=== PATIENT | female | born 1990 | race Caucasian/White ===

== ENCOUNTER 2016-07-09 14:31 | Emergency (ER) | payer OTHER ==
[2016-07-09] MEDS ORDERED: CEPHALEXIN 500 MG CAPSULE PO ONE (15:33)
[2016-07-09] MEDS ORDERED: PHENAZOPYRIDINE HCL 200 MG TABLET PO ONE (15:33)
--- NOTE | 2016-07-09 15:37 | ER Document Report ---
ED Medical Screen (RME) - General Mode of Arrival: Ambulatory Information source: Patient TRAVEL OUTSIDE OF THE [place] IN LAST 30 DAYS: No - HPI Onset: Other - 3 days ago Associated Symptoms: Other - see notes above <JUNIOR CASTILLO - Last Filed: 07/09/16 15:30> <CHANDLER DEL VALLE - Last Filed: 07/09/16 15:57> - General Chief Complaint: Urinary Problem Stated Complaint: URINATION PROBLEM Notes: 26 year old female with history of UTIs presents to the ED complaining of difficulty urinating for the past 3 days. Patient states that she had burning with urination 3 days ago, but is more of an "achy" pain now. Patient reports that she is also having some abdominal pain. Patient feels like these symptoms are similar to previous UTIs. (JUNIOR CASTILLO) - Related Data Allergies/Adverse Reactions: Sulfa (Sulfonamide Antibiotics) Allergy (Verified 07/09/16 15:21) Home Medications: Current Home Medications No Home Medications 07/09/16 [History] Past Medical History - General Information source: Patient Renal/ Medical History: Reports: Other - UTIs. Denies: Hx Peritoneal Dialysis - Immunizations Hx Diphtheria, Pertussis, Tetanus Vaccination: Yes <JUNIOR CASTILLO - Last Filed: 07/09/16 15:30> Review of Systems - Review of Systems Constitutional: No symptoms reported EENT: No symptoms reported Cardiovascular: No symptoms reported Respiratory: No symptoms reported Gastrointestinal: See HPI, Abdominal pain Genitourinary: See HPI, Burning, Dysuria, Retention Female Genitourinary: No symptoms reported Musculoskeletal: No symptoms reported Skin: No symptoms reported Hematologic/Lymphatic: No symptoms reported Neurological/Psychological: No symptoms reported -: Yes All other systems reviewed and negative <JUNIOR CASTILLO - Last Filed: 07/09/16 15:30> Physical Exam - Vital signs Interpretation: Normal - Abdominal Distension: No distension Tenderness: Other - mild suprapubic TTP <CHANDLER DEL VALLE - Last Filed: 07/09/16 15:57> - Vital signs Vitals: Temp Pulse Resp BP Pulse Ox 98.3 F 75 16 100/63 99 07/09/16 14:48 07/09/16 14:48 07/09/16 14:48 07/09/16 14:48 07/09/16 14:48 Course <JUNIOR CASTILLO - Last Filed: 07/09/16 15:30> <CHANDLER DEL VALLE - Last Filed: 07/09/16 15:57> - Re-evaluation Re-evalutation: 07/09/16 15:57 I personally performed the services described in the documentation, reviewed and edited the documentation which was dictated to the scribe in my presence, and it accurately records my words and actions. (CHANDLER DEL VALLE) - Vital Signs Vital signs: Temp Pulse Resp BP Pulse Ox 98.3 F 75 16 100/63 99 07/09/16 14:48 07/09/16 14:48 07/09/16 14:48 07/09/16 14:48 07/09/16 14:48 - Laboratory Laboratory results interpreted by me: 07/09/16 15:29 Ur Leukocyte Esterase TRACE H Scribe Documentation - Scribe Written by Scribe:: Jenn Eden, 07/09/2016 1537 acting as scribe for :: Teressa <JUNIOR CASTILLO - Last Filed: 07/09/16 15:30>
[2016-07-09 15:46] LABS: APPEARANCE,URINE SLIGHTLY-CLOUDY; BILIRUBIN,URINE NEGATIVE (NEGATIVE); GLUCOSE, URINE NEGATIVE (NEGATIVE); KETONES,URINE NEGATIVE (NEGATIVE); LEUKOCYTE ESTERASE,URINE TRACE (NEGATIVE); NITRITE,URINE NEGATIVE (NEGATIVE); PROTEIN,URINE NEGATIVE (NEGATIVE); URINE SPECIFIC GRAVITY 1.016; UROBILINOGEN,URINE NEGATIVE mg/dL (<2.0)
[2016-07-09] MEDS ORDERED: LIDOCAINE 1% INJ-PF (10 MG/ML) 30 ML SDV INJ ONE (17:28)
[2016-07-09] MEDS ORDERED: CEFTRIAXONE INJ 250 MG VIAL IM ONE (17:28)
[2016-07-09] MEDS ORDERED: AZITHROMYCIN 250 MG TABLET PO ONE (17:28)
--- NOTE | 2016-07-09 18:51 | ER Document Report ---
ED GI/ - General Chief Complaint: Urinary Problem Stated Complaint: URINATION PROBLEM Mode of Arrival: Ambulatory Information source: Patient TRAVEL OUTSIDE OF THE [place] IN LAST 30 DAYS: No - HPI Patient complains to provider of: Dysuria Severity at maximum: Mild Severity in ED: Mild Vaginal bleeding (Compared to normal period): None Sexual history: Active, New partner, Unprotected intercourse Notes: 07/09/16 18:53 Patient arrives with complaints of trouble urinating for the last few days. She states that occasionally she feels like she is not able to fully into her bladder. She complains of some mild pain with urination as well. She complains of some vaginal itching. She denies any discharge. States she is currently and has had 2 sexual partners, does not always use protection. She denies any vaginal bleeding or discharge. She denies any abdominal pain, no nausea vomiting or diarrhea. She denies any fevers. No rash. She denies any chest pain or shortness of breath. She denies any unilateral numbness tingling or weakness. Has no other complaints at this time. - Related Data Allergies/Adverse Reactions: Sulfa (Sulfonamide Antibiotics) Allergy (Verified 07/09/16 15:21) Past Medical History - General Information source: Patient - Social History Smoking Status: Unknown if Ever Smoked Family History: Reviewed & Not Pertinent Patient has suicidal ideation: No Patient has homicidal ideation: No Renal/ Medical History: Reports: Other - UTIs. Denies: Hx Peritoneal Dialysis - Immunizations Hx Diphtheria, Pertussis, Tetanus Vaccination: Yes Review of Systems - Review of Systems -: Yes All other systems reviewed and negative Physical Exam - Vital signs Vitals: Temp Pulse Resp BP Pulse Ox 98.3 F 75 16 100/63 99 07/09/16 14:48 07/09/16 14:48 07/09/16 14:48 07/09/16 14:48 07/09/16 14:48 - General General appearance: Appears well, Alert - HEENT Head: Normocephalic, Atraumatic Eyes: Normal Pupils: PERRL Pharynx: Normal - Respiratory Respiratory status: No respiratory distress Breath sounds: Normal - Cardiovascular Rhythm: Regular Heart sounds: Normal auscultation Murmur: No - Abdominal Inspection: Normal Distension: No distension Bowel sounds: Normal Tenderness: Nontender Organomegaly: No organomegaly - Genitourinary External exam: Normal. No: Lesions, Vesicles Speculum exam: Normal, Cervix closed. No: Vaginal discharge, Lesions, Vaginal lacerations Vaginal bleeding: None Bimanuel exam: Normal. No: Cervical motion tender, Bladder/Urethral tender, Adnexal mass, Adnexal tenderness, Uterus enlarged - Back Back: Normal, Nontender. No: CVA tenderness - Extremities General upper extremity: Normal inspection, Nontender, Normal color, Normal ROM , Normal temperature General lower extremity: Normal inspection, Nontender, Normal color, Normal ROM , Normal temperature, Normal weight bearing. No: Yvette's sign - Neurological Neuro grossly intact: Yes Cognition: Normal Orientation: AAOx4 Sarah Coma Scale Eye Opening: Spontaneous Sarah Coma Scale Verbal: Oriented [place] Coma Scale Motor: Obeys Commands [place] Coma Scale Total: 15 Speech: Normal Motor strength normal: LUE, RUE, LLE, RLE Sensory: Normal - Psychological Associated symptoms: Normal affect, Normal mood - Skin Skin Temperature: Warm Skin Moisture: Dry Skin Color: Normal Course - Re-evaluation Re-evalutation: 07/09/16 19:22 Patient is nontoxic and stable vitals. The patient has urinary symptoms, no obvious UTI seen. GC chlamydia cultures are currently pending at this time. The patient has been sexually active without protection, therefore she was likely treated for gonorrhea and chlamydia here in the emergency department. Wet prep shows no trichomoniasis or yeast, shows epithelial cells as well as bacteria which according to the lab is consistent with bacterial vaginosis. Patient will be discharged home on Macrobid for possible minor UTI as well as Flagyl for possible BV. Follow-up if not better in 3-5 days, sooner for increasing pain, high fever, persistent vomiting, or any further concerns. The patient's emergency department workup and current diagnosis were explained to the patient and or family. Follow-up instructions were provided. Medications if prescribed were discussed. Instructions for when to return to the emergency department including specific worrisome symptoms were discussed with the patient and/or family. - Vital Signs Vital signs: Temp Pulse Resp BP Pulse Ox 98.3 F 75 16 100/63 99 07/09/16 14:48 07/09/16 14:48 07/09/16 14:48 07/09/16 14:48 07/09/16 14:48 - Laboratory Laboratory results interpreted by me: 07/09/16 15:29 Ur Leukocyte Esterase TRACE H Discharge - Discharge Clinical Impression: BV (bacterial vaginosis) UTI (urinary tract infection) Qualifiers: Urinary tract infection type: acute cystitis Hematuria presence: without hematuria Qualified Code(s): N30.00 - Acute cystitis without hematuria Condition: Stable Disposition: HOME, SELF-CARE Instructions: Urinary Tract Infection ([facility]), Vaginosis, Bacterial ([facility]) Additional Instructions: Take medications as prescribed. Always use condoms. Follow-up with your doctor for Pap testing as well as HIV and syphilis testing. Follow up if not better in 3-5 days, sooner for increased pain, high fever, persistent vomiting, or any further concerns. Prescriptions: Metronidazole [Flagyl 500 mg Tablet] 500 mg PO TID #21 tablet Nitrofurantoin Monohyd/M-Cryst [Macrobid 100 mg Capsule] 100 mg PO BID #10 capsule
[2016-07-09 20:05] LABS: CHLAM PCR DETECTED (NOT DETECT)
[2016-07-09 20:38] VITALS: BP 123/88
== END 2016-07-09 19:40 | disposition home or self-care (01) ==
LOC: ER 14:31
DX: N76.0 Acute vaginitis (principal); N30.00 Acute cystitis without hematuria; R39.198 Other difficulties with micturition; R30.9 Painful micturition, unspecified
CPT/HCPCS: 99284; 96372; 87210; 81025; 81001; 87491; 87591; J3490; J0696

== ENCOUNTER 2016-09-25 02:03 | Emergency (ER) | payer OTHER, MEDICAID ==
[2016-09-25 03:01] LABS: APPEARANCE,URINE CLOUDY; BILIRUBIN,URINE NEGATIVE (NEGATIVE); GLUCOSE, URINE NEGATIVE (NEGATIVE); KETONES,URINE NEGATIVE (NEGATIVE); LEUKOCYTE ESTERASE,URINE MODERATE (NEGATIVE); NITRITE,URINE NEGATIVE (NEGATIVE); PROTEIN,URINE NEGATIVE (NEGATIVE); URINE SPECIFIC GRAVITY 1.018; UROBILINOGEN,URINE NEGATIVE mg/dL (<2.0)
[2016-09-25 03:15] VITALS: BP 116/69
[2016-09-25 03:18] LABS: ABSOLUTE BASOPHILS # (AUTO) 0.1 10^3/uL (0.0-0.2); ABSOLUTE EOSINOPHILS # (AUTO) 0.4 10^3/uL (0.0-0.6); ABSOLUTE LYMPHOCYTES (AUTO) 3.4 10^3/uL (0.5-4.7); ABSOLUTE MONOCYTES (AUTO) 0.6 10^3/uL (0.1-1.4); ABSOLUTE NEUT (AUTO) 4.2 10^3/uL (1.7-8.2); BASOPHILS % (AUTO) 0.8 % (0-2); EOSINOPHILS % (AUTO) 4.5 % (0-6); HEMATOCRIT 37.9 % (36.0-47.0); HEMOGLOBIN 12.5 g/dL (12.0-15.5); HGB HCT DIFFERENCE -0.4; LYMPHOCYTES % (AUTO) 39.5 % (13-45); MEAN CORPUSCULAR HEMOGLOBIN 29.9 pg (27.0-33.4); MEAN CORPUSCULAR VOLUME 91 fl (80-97); MONOCYTES % (AUTO) 6.6 % (3-13); RED BLOOD COUNT 4.19 10^6/uL (3.72-5.28); RED CELL DISTRIBUTION WIDTH 13.6 % (11.5-14.0); SEGMENTED NEUTROPHILS % (AUTO) 48.6 % (42-78); WHITE BLOOD COUNT 8.5 10^3/uL (4.0-10.5)
--- NOTE | 2016-09-25 03:27 | ER Document Report ---
ED GI/ - General Chief Complaint: Abdominal Cramping Stated Complaint: ABDOMINAL PAIN Time Seen by Provider: 09/25/16 02:50 Mode of Arrival: Ambulatory Information source: Patient Notes: 26-year-old female presents to ED bilateral lower abdominal pain. States that the cramping has been going on since yesterday. She states she had a. 0.68 2017. She states she has a history of polycystic ovarian syndrome. She denies being on any medication for the PCOS. TRAVEL OUTSIDE OF THE [place] IN LAST 30 DAYS: No - HPI Patient complains to provider of: Abdominal pain, Pelvic pain Onset: Other - Several days Timing/Duration: Intermittent Quality of pain: Cramping Severity at maximum: Moderate Severity in ED: Moderate Pain Level: 4 Location: LUQ, LLQ, RUQ, RLQ, Pelvis Vaginal bleeding (Compared to normal period): None LMP: 09/12/16 Associated symptoms: None Exacerbated by: Movement Relieved by: Other - Bowel movement Similar symptoms previously: Yes Recently seen / treated by doctor: No - Related Data Allergies/Adverse Reactions: Sulfa (Sulfonamide Antibiotics) Allergy (Verified 07/09/16 15:21) Past Medical History - General Information source: Patient - Social History Smoking Status: Current Every Day Smoker Cigarette use (# per day): Yes - 4-5 Chew tobacco use (# tins/day): No Smoking Education Provided: Yes - Less than 2 minutes Frequency of alcohol use: Occasional Drug Abuse: None Occupation: Cleaning Lives with: Alone - With daughter Family History: CAD, COPD, CVA, Hypertension, Malignancy. denies: DM, Hyperlipidemia, Thyroid Disfunction Patient has suicidal ideation: No Patient has homicidal ideation: No - Past Medical History Cardiac Medical History: Reports: None Pulmonary Medical History: Reports: None EENT Medical History: Reports: None Neurological Medical History: Reports: None Endocrine Medical History: Reports: None Renal/ Medical History: Reports: Hx Ovarian Cysts - PCOS Malignancy Medical History: Reports: None GI Medical History: Reports: None Musculoskeltal Medical History: Reports None Skin Medical History: Reports None Psychiatric Medical History: Reports: None Traumatic Medical History: Reports: None Infectious Medical History: Reports: None Past Surgical History: Reports: Hx Abdominal Surgery - Laparoscopy to diagnose PCOS, Hx Adenoidectomy, Hx Oral Surgery - Panther Burn teeth, Hx Tonsillectomy - Immunizations Hx Diphtheria, Pertussis, Tetanus Vaccination: Yes Review of Systems - Review of Systems Constitutional: No symptoms reported EENT: No symptoms reported Cardiovascular: No symptoms reported Respiratory: No symptoms reported Gastrointestinal: Abdominal pain Genitourinary: No symptoms reported Female Genitourinary: Other Musculoskeletal: No symptoms reported Skin: No symptoms reported Hematologic/Lymphatic: No symptoms reported Neurological/Psychological: No symptoms reported -: Yes All other systems reviewed and negative Physical Exam - Vital signs Vitals: Temp Pulse Resp BP Pulse Ox 98.3 F 80 16 108/55 L 100 09/25/16 02:15 09/25/16 02:15 09/25/16 02:15 09/25/16 02:15 09/25/16 02:15 Interpretation: Normal - General General appearance: Appears well, Alert - HEENT Head: Normocephalic, Atraumatic Eyes: Normal Pupils: PERRL - Respiratory Respiratory status: No respiratory distress Chest status: Nontender Breath sounds: Normal Chest palpation: Normal - Cardiovascular Rhythm: Regular Heart sounds: Normal auscultation Murmur: No - Abdominal Inspection: Normal Distension: No distension Bowel sounds: Normal Tenderness: Tender - Left upper abdomen and bilateral pelvic pain history of PCOS Organomegaly: No organomegaly - Back Back: Normal, Nontender - Extremities General upper extremity: Normal inspection, Nontender, Normal color, Normal ROM , Normal temperature General lower extremity: Normal inspection, Nontender, Normal color, Normal ROM , Normal temperature, Normal weight bearing. No: Yvette's sign - Neurological Neuro grossly intact: Yes Cognition: Normal Orientation: AAOx4 [place] Coma Scale Eye Opening: Spontaneous [place] Coma Scale Verbal: Oriented [place] Coma Scale Motor: Obeys Commands [place] Coma Scale Total: 15 Speech: Normal Motor strength normal: LUE, RUE, LLE, RLE Sensory: Normal - Psychological Associated symptoms: Normal affect, Normal mood - Skin Skin Temperature: Warm Skin Moisture: Dry Skin Color: Normal Course - Vital Signs Vital signs: Temp Pulse Resp BP Pulse Ox 98.3 F 80 16 116/69 100 09/25/16 02:15 09/25/16 02:15 09/25/16 02:15 09/25/16 03:14 09/25/16 03:15 - Laboratory Result Diagrams: 09/25/16 02:57 09/25/16 02:57 Laboratory results interpreted by me: 09/25/16 09/25/16 09/25/16 02:50 02:50 02:57 Chloride 109 H Urine Blood SMALL H Ur Leukocyte Esterase MODERATE H Chlamydia DNA (PCR) DETECTED H Discharge - Discharge Clinical Impression: Pelvic pain Condition: Stable Disposition: HOME, SELF-CARE Instructions: Family Physicians / Practices Additional Instructions: PELVIC PAIN: There are many causes of pain in the pelvic area. The cause could be the tubes, ovaries, uterus, intestines, appendix, pelvic muscles and connective tissue, or the urinary tract. The cause of your pelvic pain is not clear. However, it seems safe to treat you outside the hospital. If the pain sounds like a temporary problem, we sometimes wait to see if it goes away. Other patients may need additional tests, such as pelvic ultrasound or cultures. Conditions may change. Call us or come back for reexamination if any problems occur, such as: (1) Pain that becomes more severe, steady, or becomes concentrated in one specific area. Also, pain that is more severe with movement or coughing. (2) Vomiting that persists or becomes more frequent. (3) Blood in the vomitus, urine, or bowel movements. Blood in the stool may have a tarry or black appearance. (4) Shaking chills or fever greater than 100 degrees. (5) The abdomen becomes more distended or swollen. (6) Bowel movements cease. (7) Heavy vaginal bleeding. CEPHALOSPORINS: An antibiotic of the cephalosporin class has been prescribed. This type of antibiotic covers a wide variety of infections, including those of the skin, lungs, middle ear, and urinary tract. This antibiotic is somewhat similar to the penicillin family. In rare cases , a person who is allergic to penicillin will also be allergic to this medication. If you have had a severe allergic reaction to penicillin, and have not taken this antibiotic since that time, notify your doctor. Antibiotics which cover many germs ("broad spectrum" antibiotics) are more likely to cause diarrhea or "yeast" infections. Women prone to vaginal yeast problems may suffer an attack after taking this antibiotic. In infants, oral thrush (white spots "stuck" on the cheek) or yeast diaper rash may result. See your doctor if these problems occur. Call the doctor at once if you develop hives, itching, shortness of breath , or lightheadedness. AZITHROMYCIN: Azithromycin (Zithromax) is a broad spectrum antibiotic in the same class as erythromycin. It can treat a variety of bacterial infections, but is most frequently used for respiratory infections. Azithromycin is extremely long-lasting. It accumulates in body tissues and continues to kill bacteria for many days. In order to improve absorption, Azithromycin should be taken at least one hour before or two hours after a meal. It does not have the same strong tendency to upset the stomach as erythromycin and is usually very well tolerated. Patients who have had a rash or other true allergic reactions to erythromycin should not take this medication. Call if you develop gastrointestinal distress, severe diarrhea, rash, hives, itching, or shortness of breath. Anti-Inflammatory Medication You have received a prescription for an antiinflammatory agent. This is an excellent, safe drug for pain control. In addition, it has potent antiinflammatory effects which are beneficial, especially in the treatment of injuries, arthritis, or tendonitis. It's best to take this medicine with food. Persons with ulcer disease or allergy to aspirin should notify their physician of this before taking this drug. Take the medication exactly as prescribed. Don't take additional doses unless instructed to do so by your doctor. If you develop wheezing, shortness of breath, hives, faintness, stomach pain, vomiting, or dark black stools, return for re-evaluation at once. FOLLOW-UP CARE: If you have been referred to a physician for follow-up care, call the physician s office for an appointment as you were instructed or within the next two days. If you experience worsening or a significant change in your symptoms, notify the physician immediately or return to the Emergency Department at any time for re-evaluation.
[2016-09-25 03:30] LABS: ALANINE AMINOTRANSFERASE 27 U/L (9-52); ALBUMIN 3.9 g/dL (3.5-5.0); ALKALINE PHOSPHATASE 63 U/L (38-126); ANION GAP 9 (5-19); ASPARTATE AMINO TRANSFERASE 22 U/L (14-36); BILIRUBIN,DIRECT 0.2 mg/dL (0.0-0.4); BILIRUBIN,TOTAL 0.4 mg/dL (0.2-1.3); BLOOD UREA NITROGEN 14 mg/dL (7-20); CALCIUM 8.8 mg/dL (8.4-10.2); CARBON DIOXIDE 22 mmol/L (22-30); CHLORIDE 109 mmol/L (98-107); CREATININE RESULT 0.82 mg/dL (0.52-1.25); GLUCOSE 92 mg/dL (75-110); SODIUM 140.2 mmol/L (137-145); TOTAL PROTEIN 6.7 g/dL (6.3-8.2)
[2016-09-25] MEDS ORDERED: NAPROXEN 250 MG TABLET PO ONE (04:25)
[2016-09-25] MEDS ORDERED: AZITHROMYCIN 250 MG TABLET PO ONE (04:31)
[2016-09-25] MEDS ORDERED: LIDOCAINE 1% INJ-PF (10 MG/ML) 30 ML SDV INJ ONE (04:31)
[2016-09-25] MEDS ORDERED: CEFTRIAXONE INJ 250 MG VIAL IM ONE (04:31)
[2016-09-25 04:57] LABS: CHLAM PCR DETECTED (NOT DETECT)
[2016-09-25] MEDS ORDERED: AZITHROMYCIN 250 MG TABLET ONE (05:30)
== END 2016-09-25 05:53 | disposition home or self-care (01) ==
LOC: ER 02:03
DX: R10.2 Pelvic and perineal pain (principal); R10.31 Right lower quadrant pain; R10.32 Left lower quadrant pain; E28.2 Polycystic ovarian syndrome; F17.210 Nicotine dependence, cigarettes, uncomplicated
CPT/HCPCS: 99284; 96372; 36415; 87086; 83690; 85025; 81025; 80053; 81001; 87491; 87591; J0696

== ENCOUNTER 2016-10-26 10:43 | Emergency (ER) | payer OTHER, MEDICAID ==
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
[2016-10-26] MEDS ORDERED: OXYCODONE HCL IR 5 MG TABLET PO ONE (12:31)
[2016-10-26 12:41] VITALS: BP 122/74
== END 2016-10-26 12:40 | disposition home or self-care (01) ==
LOC: ER 10:43
DX: S30.0XXA Contusion of lower back and pelvis, initial encounter (principal); S00.31XA Abrasion of nose, initial encounter; R51 Headache; M54.9 Dorsalgia, unspecified; V86.69XA Passenger of other special all-terrain or other off-road motor vehicle injured in nontraffic accident, initial encounter; Y93.89 Activity, other specified; F17.200 Nicotine dependence, unspecified, uncomplicated; Z88.2 Allergy status to sulfonamides; Z79.3 Long term (current) use of hormonal contraceptives
CPT/HCPCS: 70160; 72070; 72110; 72170; 99284

== ENCOUNTER 2017-04-12 10:16 | Emergency (ER) | payer MEDICAID, OTHER ==
[2017-04-12 10:26] VITALS: BP 111/75
--- NOTE | 2017-04-12 10:41 | ER Document Report ---
ED GI/ - General Chief Complaint: Abdominal Pain Stated Complaint: PAINFUL URINATION Time Seen by Provider: 04/12/17 10:28 Mode of Arrival: Ambulatory Information source: Patient, [facility] Records Notes: 26-year-old female patient with 3 day history of frequency dysuria. She states it is getting progressively worse despite taking Azo-Standard. LMP was 2 weeks ago is on control pills. She was seen here on 07/09/2016 and 09/25/2016 with positive Chlamydia tests. She has not urinated since earlier this morning, she states she has been not drinking fluids intentionally because of the discomfort when she does urinate. She is encouraged to drink lots of fluids, get a dirty urine catch for STD testing as soon as she can, as that takes the longest process. When she is able she should obtain a very clean urine catch for analysis and culture. TRAVEL OUTSIDE OF THE [place] IN LAST 30 DAYS: No - Related Data Allergies/Adverse Reactions: Sulfa (Sulfonamide Antibiotics) Allergy (Verified 04/12/17 10:17) Past Medical History - General Information source: Patient, [facility] Records - Social History Smoking Status: Current Every Day Smoker Cigarette use (# per day): Yes Chew tobacco use (# tins/day): No Smoking Education Provided: No Frequency of alcohol use: Occasional Drug Abuse: None Occupation: Unemployed Lives with: Friend Family History: CAD, COPD, CVA, Hypertension, Malignancy Patient has suicidal ideation: No Patient has homicidal ideation: No - Past Medical History Cardiac Medical History: Reports: None Pulmonary Medical History: Reports: None EENT Medical History: Reports: None Neurological Medical History: Reports: None Endocrine Medical History: Reports: None Renal/ Medical History: Reports: Hx Ovarian Cysts - PCOS, Hx Pelvic Inflammatory Disease - Positive chlamydia testing twice in 2016, once in July and once in September GI Medical History: Reports: None Musculoskeltal Medical History: Reports None Skin Medical History: Reports None Psychiatric Medical History: Reports: Hx Attention Deficit Hyperactivity Disorder, Hx Depression Past Surgical History: Reports: Hx Abdominal Surgery - Laparoscopy to diagnose PCOS, Hx Adenoidectomy, Hx Oral Surgery - [place] teeth, Hx Tonsillectomy - Immunizations Hx Diphtheria, Pertussis, Tetanus Vaccination: Yes Review of Systems - Review of Systems Constitutional: No symptoms reported EENT: No symptoms reported Cardiovascular: No symptoms reported Respiratory: No symptoms reported Gastrointestinal: No symptoms reported Genitourinary: See HPI Female Genitourinary: No symptoms reported Musculoskeletal: No symptoms reported Skin: No symptoms reported Hematologic/Lymphatic: No symptoms reported Neurological/Psychological: No symptoms reported Physical Exam - Vital signs Vitals: Temp Pulse Resp BP Pulse Ox 98.3 F 74 18 111/75 100 04/12/17 10:24 04/12/17 10:24 04/12/17 10:24 04/12/17 10:24 04/12/17 10:24 Interpretation: Normal - General General appearance: Appears well, Alert In distress: None - HEENT Head: Normocephalic, Atraumatic Eyes: Normal Pupils: PERRL Mouth/Lips: Normal Neck: Normal - Respiratory Respiratory status: No respiratory distress Breath sounds: Normal - Cardiovascular Rhythm: Regular Heart sounds: Normal auscultation Murmur: No - Abdominal Inspection: Normal Bowel sounds: Normal Tenderness: Tender - Patient has some suprapubic tenderness. There is really no tenderness in the right and left lower quadrants and pelvic region. - Back Back: Normal. No: Tender, CVA tenderness - Extremities General upper extremity: Normal inspection General lower extremity: Normal inspection - Neurological Neuro grossly intact: Yes - Psychological Associated symptoms: Normal affect, Normal mood - Skin Skin Temperature: Warm Skin Moisture: Dry Skin Color: Normal Course - Vital Signs Vital signs: Temp Pulse Resp BP Pulse Ox 98.3 F 74 18 111/75 100 04/12/17 10:24 04/12/17 10:24 04/12/17 10:24 04/12/17 10:24 04/12/17 10:24 - Laboratory Laboratory results interpreted by me: 04/12/17 11:30 Urine Protein 30 H Urine Blood MODERATE H Ur Leukocyte Esterase LARGE H Discharge - Discharge Clinical Impression: Urinary tract infection Qualifiers: Urinary tract infection type: acute cystitis Hematuria presence: with hematuria Qualified Code(s): N30.01 - Acute cystitis with hematuria Condition: Stable Disposition: HOME, SELF-CARE Additional Instructions: Urinary Tract Infection Your evaluation indicates that you have a urinary tract infection. This is due to germs growing in the bladder. This is a common problem. This infection usually responds quickly to antibiotics. Your antibiotic should be taken exactly as prescribed. Drink plenty of fluids -- three to four quarts a day. Occasionally, a bladder anesthetic will be prescribed to help stop the feeling of urgency until the antibiotic has a chance to clear the infection. This may cause your urine to be dark orange. Certain urine infections require a culture. If the doctor obtained a culture, the results will be back in two days. You should call to see if a change in treatment is needed. A repeat urinalysis after you finish treatment is often recommended. The physician will let you know if further testing is required. Call the doctor if you develop fever, chills, flank pain, inability to urinate, or blood in the urine. //////////////////////////////////////////////////////////////////////////////// //////////////////////////////////////////////////////////////////////////////// //////////////// Take medications as prescribed. Continue taking the Azo-Standard for symptomatic relief. You will be discharged with some pain medication to take for today. Drink lots of fluids throughout the day to help flush the bacteria from the bladder. Follow-up with a local medical doctor if not improving. RETURN TO THE EMERGENCY ROOM IF ANY NEW OR WORSENING SYMPTOMS. Prescriptions: Doxycycline Hyclate 100 mg PO BID #14 tablet
[2017-04-12] MEDS ORDERED: OXYCODONE-ACETAMINOPHEN 5-325 MG TABLET PO ONE (11:13)
[2017-04-12 12:13] LABS: AMORPHOUS SEDIMENT,URINE TRACE /HPF; APPEARANCE,URINE CLOUDY; BILIRUBIN,URINE NEGATIVE (NEGATIVE); COLOR,URINE YELLOW; GLUCOSE, URINE NEGATIVE (NEGATIVE); KETONES,URINE NEGATIVE (NEGATIVE); LEUKOCYTE ESTERASE,URINE LARGE (NEGATIVE); NITRITE,URINE NEGATIVE (NEGATIVE); PROTEIN,URINE 30 mg/dL (NEGATIVE); URINE SPECIFIC GRAVITY 1.008; UROBILINOGEN,URINE NEGATIVE mg/dL (<2.0)
[2017-04-12] MEDS ORDERED: HYDROCODONE/ACETAMINOPHEN 5-325 MG (6 TAB/ER DISP) PO PRN (12:25)
[2017-04-12] MEDS ORDERED: DOXYCYCLINE HYCLATE 100 MG TABLET PO ONE (12:25)
== END 2017-04-12 12:37 | disposition home or self-care (01) ==
LOC: ER 10:16
DX: N30.01 Acute cystitis with hematuria (principal); F17.210 Nicotine dependence, cigarettes, uncomplicated; E28.2 Polycystic ovarian syndrome; Z79.3 Long term (current) use of hormonal contraceptives; Z88.2 Allergy status to sulfonamides
CPT/HCPCS: 81001; 81025; 87086; 99283

== ENCOUNTER 2017-10-19 15:50 | Emergency (ER) | payer SELFPAY ==
[2017-10-19 16:13] VITALS: BP 118/66
[2017-10-19] MEDS ORDERED: METOCLOPRAMIDE HCL 10 MG TABLET PO ONE (17:04)
[2017-10-19] MEDS ORDERED: LORAZEPAM 0.5 MG TABLET PO ONE (17:04)
[2017-10-19] MEDS ORDERED: DIPHENHYDRAMINE HCL 50 MG CAPSULE PO ONE (17:04)
--- NOTE | 2017-10-19 17:08 | ER Document Report ---
ED General - General Chief Complaint: Nausea Stated Complaint: WEAKNESS,HEADACHE Time Seen by Provider: 10/19/17 17:03 Mode of Arrival: Ambulatory Information source: Patient Notes: 27-year-old female with no significant past medical history presents with complaint of headache, nausea, lightheadedness and sweats. Patient states that headache started 2 days prior to arrival. It is located on the right and left side of her head and described as a constant throbbing pain that is not relieved with ibuprofen. She denies any head injury but does admit to working long hours outside and only drinking red bull. Patient denies any chest pain, fever, chills, shortness of breath. She denies any recent illness or new medications. TRAVEL OUTSIDE OF THE [place] IN LAST 30 DAYS: No - HPI Onset: Other Onset/Duration: Gradual, Persistent Quality of pain: Achy, Throbbing Severity: Mild Associated symptoms: Nausea. denies: Vomiting Exacerbated by: Denies Relieved by: Denies Similar symptoms previously: No Recently seen / treated by doctor: No - Related Data Allergies/Adverse Reactions: Sulfa (Sulfonamide Antibiotics) Allergy (Verified 10/19/17 16:58) Past Medical History - General Information source: Patient, [facility] Records - Social History Smoking Status: Current Every Day Smoker Cigarette use (# per day): Yes - 10 Chew tobacco use (# tins/day): No Smoking Education Provided: Yes - Patient counselled regarding cessation for 4 minutes Frequency of alcohol use: Social Drug Abuse: None Lives with: Spouse/Significant other Family History: CAD, COPD, CVA, Hypertension, Malignancy Patient has suicidal ideation: No Patient has homicidal ideation: No - Medical History Medical History: Negative Renal/ Medical History: Reports: Hx Ovarian Cysts - PCOS, Hx Pelvic Inflammatory Disease - Positive chlamydia testing twice in 2016, once in July and once in September. Denies: Hx Peritoneal Dialysis Psychiatric Medical History: Reports: Hx Attention Deficit Hyperactivity Disorder, Hx Depression Past Surgical History: Reports: Hx Abdominal Surgery - Laparoscopy to diagnose PCOS, Hx Adenoidectomy, Hx Oral Surgery - [place] teeth, Hx Tonsillectomy - Immunizations Hx Diphtheria, Pertussis, Tetanus Vaccination: Yes Review of Systems - Review of Systems Notes: REVIEW OF SYSTEMS: CONSTITUTIONAL : Denies fever, chills, or sweats. Denies recent illness. Denies weight loss, recent hospitalizations. EENT: Denies visual changes, eye pain. Denies nasal or sinus congestion or discharge. Denies sore throat, oral lesions, difficulty swallowing. CARDIOVASCULAR: Denies chest pain. Denies palpitations. Denies lower extremity edema. RESPIRATORY: Denies cough, cold, or chest congestion. Denies shortness of breath, wheezing. GASTROINTESTINAL: Denies abdominal pain or distention. Denies vomiting, or diarrhea. Denies blood in vomitus, stools, or per rectum. Denies black, tarry stools. Denies constipation. GENITOURINARY: Denies difficulty urinating, painful urination, frequency, blood in urine, or vaginal discharge. MUSCULOSKELETAL: Denies back or neck pain or stiffness. Denies joint pain or swelling. SKIN: Denies rash, lesions or sores. HEMATOLOGIC : Denies easy bruising or bleeding. LYMPHATIC: Denies swollen glands. NEUROLOGICAL: Denies confusion or altered mental status. Denies passing out or loss of consciousness. Denies weakness or paralysis. Denies problems difficulty with ambulation, slurred speech. Denies sensory loss, numbness, or tingling. Denies seizures. PSYCHIATRIC: Denies anxiety or stress. Denies depression, suicidal ideation, or homicidal ideation. Denies visual or auditory hallucinations. Physical Exam - Vital signs Vitals: Temp Pulse Resp BP Pulse Ox 98.6 F 73 20 118/66 100 10/19/17 16:11 10/19/17 16:11 10/19/17 16:11 10/19/17 16:11 10/19/17 16:11 - Notes Notes: PHYSICAL EXAMINATION: GENERAL: Well-appearing, well-nourished and in no acute distress. HEAD: Atraumatic, normocephalic. EYES: Pupils equal round and reactive to light, extraocular movements intact, conjunctiva are normal. ENT: Nares patent, oropharynx clear without exudates. Moist mucous membranes. NECK: Normal range of motion, supple without lymphadenopathy LUNGS: Breath sounds clear to auscultation bilaterally and equal. No wheezes rales or rhonchi. HEART: Regular rate and rhythm without murmurs ABDOMEN: Soft, nontender, nondistended abdomen. No guarding, no rebound. No masses appreciated. Female : deferred Musculoskeletal: Normal range of motion, no pitting or edema. No cyanosis. NEUROLOGICAL: Cranial nerves grossly intact. Normal speech, normal gait. Normal sensory, motor exams PSYCH: Normal mood, normal affect. SKIN: Warm, Dry, normal turgor, no rashes or lesions noted. Course - Re-evaluation Re-evalutation: Laboratory 10/19/17 18:00 Urine Color STRAW Urine Appearance SLIGHTLY-CLOUDY Urine pH 7.0 Ur Specific [place] 1.005 Urine Protein NEGATIVE Urine Glucose (UA) NEGATIVE Urine Ketones NEGATIVE Urine Blood NEGATIVE Urine Nitrite NEGATIVE Urine Bilirubin NEGATIVE Urine Urobilinogen NEGATIVE Ur Leukocyte Esterase NEGATIVE Urine WBC (Auto) 2 Urine RBC (Auto) 1 Urine Bacteria (Auto) TRACE Squamous Epi Cells Auto 12 Urine Mucus (Auto) RARE Urine Ascorbic Acid NEGATIVE Urine HCG, Qual NEGATIVE 27-year-old female with no significant past medical history presents with complaint of headache, nausea, lightheadedness and sweats. Patient states that headache started 2 days prior to arrival. It is located on the right and left side of her head and described as a constant throbbing pain that is not relieved with ibuprofen. She denies any head injury but does admit to working long hours outside and only drinking red bull. Patient denies any chest pain, fever, chills, shortness of breath. She denies any recent illness or new medications. Patient was seen by myself upon arrival. Vital signs were reviewed. Patient is afebrile, normotensive and not hypoxic. Patient does not appear toxic or dehydrated. They are in no acute distress. Previous medical records and nursing notes reviewed. Patient has a normal neuro logic and physical exam. She did receive Reglan, Benadryl, Ativan during her ED course. 10/19/17 18:58 On reevaluation patient reports improvement of her nausea and headache. Again we discussed the importance of good hydration while she is working outside. Patient will be discharged home with Ruben Monae. Patient provided the opportunity to ask questions, and express concerns. Discharge instructions discussed. Patient is agreeable with discharge home. Return indications explained and discussed with the patient who displays understanding. Patient encouraged to return to the emergency department immediately with any concerns. 10/19/17 18:58 10/19/17 18:59 - Vital Signs Vital signs: Temp Pulse Resp BP Pulse Ox 98.6 F 73 20 118/66 100 10/19/17 16:11 10/19/17 16:11 10/19/17 16:11 10/19/17 16:11 10/19/17 16:11 Discharge - Discharge Clinical Impression: Nausea, Dizziness Headache Qualifiers: Headache type: unspecified Headache chronicity pattern: acute headache Intractability: not intractable Qualified Code(s): R51 - Headache Condition: Good Disposition: HOME, SELF-CARE Instructions: Reglan ([facility]), Headache ([facility]), Dizziness ([facility]), Nausea or Vomiting , Nonspecific ([facility]) Additional Instructions: Please drink plenty of non-caffeinated beverages while you are working out in the heat. Follow up with your physician tomorrow for further care or return to the ED IMMEDIATELY if symptoms worsen or new concerns occur. If you cannot afford to follow up with your primary care physician a list of low cost clinics have been provided at the end of your discharge papers as well. Prescriptions: Ibuprofen [Motrin 600 Mg Tablet] 600 mg PO TID #15 tablet Metoclopramide HCl [Reglan 10 mg Tablet] 1 - 2 tab PO ASDIR PRN #10 tablet PRN Reason: Referrals: YOSEF CUNNINGHAM FNP-C [Primary Care Provider] - Follow up as needed
[2017-10-19 18:21] LABS: APPEARANCE,URINE SLIGHTLY-CLOUDY; BILIRUBIN,URINE NEGATIVE (NEGATIVE); COLOR,URINE STRAW; GLUCOSE, URINE NEGATIVE (NEGATIVE); KETONES,URINE NEGATIVE (NEGATIVE); LEUKOCYTE ESTERASE,URINE NEGATIVE (NEGATIVE); NITRITE,URINE NEGATIVE (NEGATIVE); PROTEIN,URINE NEGATIVE (NEGATIVE); URINE SPECIFIC GRAVITY 1.005; UROBILINOGEN,URINE NEGATIVE mg/dL (<2.0)
== END 2017-10-19 19:06 | disposition home or self-care (01) ==
LOC: ER 15:50
DX: R11.0 Nausea (principal); R42 Dizziness and giddiness; R51 Headache; R61 Generalized hyperhidrosis; F17.210 Nicotine dependence, cigarettes, uncomplicated
CPT/HCPCS: 81001; 81025; 99284; 99406

== ENCOUNTER 2018-05-10 10:28 | Emergency (ER) | payer SELFPAY ==
[2018-05-10] MEDS ORDERED: IBUPROFEN 800 MG TABLET PO ONE (10:52)
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
== END 2018-05-10 12:00 | disposition home or self-care (01) ==
LOC: ER 10:28 → EEVIPCON 10:28 → ER 12:00
DX: S63.92XA Sprain of unspecified part of left wrist and hand, initial encounter (principal); Y04.0XXA Assault by unarmed brawl or fight, initial encounter; F17.200 Nicotine dependence, unspecified, uncomplicated
CPT/HCPCS: 99283